=== PATIENT | female | born 1985 | race Two or more races ===

== ENCOUNTER 2020-08-07 21:38 | Emergency (ER) | payer MEDICAID ==
[~2020-08-07] VITALS: Ht 154.9 cm; Wt 83.9 kg
[2020-08-08] MEDS ORDERED: ACETAMINOPHEN 325 MG TAB PO ONE (01:30)
[2020-08-08 01:43] VITALS: BP 154/102
== END 2020-08-08 02:24 | disposition home or self-care (01) ==
LOC: ER 21:43
DX: G56.02 Carpal tunnel syndrome, left upper limb (principal)
CPT/HCPCS: 29125